=== PATIENT | male | born 1980 | race Caucasian/White ===

== ENCOUNTER 2017-12-07 09:08 | Emergency (ER) | payer SELFPAY ==
[2017-12-07 10:18] LABS: Basophils % (Auto) 0.4 % (0.0-1.8); Eosinophils # (Auto) 0.1 K/mm3 (0.0-0.4); Eosinophils % (Auto) 1.2 % (0.0-4.3); Hematocrit 37.9 % (35.5-45.6); Lymphocytes # (Auto) 1.6 K/mm3 (1.2-5.4); Lymphocytes % (Auto) 22.6 % (13.4-35.0); Mean Corpuscular HGB Conc 32 % (32-34); Mean Corpuscular Hemoglobin 31 pg (28-32); Mean Corpuscular Volume 97 fl (84-94); Monocytes # (Auto) 0.4 K/mm3 (0.0-0.8); Monocytes % (Auto) 6.1 % (0.0-7.3); Platelet Count 155 K/mm3 (140-440); Red Blood Count 3.92 M/mm3 (3.65-5.03)
[2017-12-07 10:20] LABS: Red Cell Distribution Width 22.7 % (13.2-15.2)
[2017-12-07 10:28] LABS: INR 1.29 (0.87-1.13); Partial Thromboplastin Time 27.9 Sec. (24.2-36.6)
[2017-12-07 10:30] LABS: Calcium 11.3 mg/dL (8.4-10.2)
[2017-12-07 11:04] LABS: Chol/HDL Ratio 2.88 %
--- NOTE | 2017-12-07 11:39 | XRay Report ---
ROUTINE CHEST, TWO VIEWS: HISTORY: chest pain. No comparison. A right IJ dual-lumen catheter terminates in the superior right atrium. There is minor scarring in the lingula, otherwise, the lungs are well-aerated. No evidence for pneumonia, pleural effusion or pneumothorax. Normal heart and mediastinal structures. The bony structures appear demineralized. No obvious fracture or bone lesion. There appears to be a stimulator device with 2 leads overlying the expected position of the cardiac apex. Please correlate with the patient's history. IMPRESSION: No acute cardiopulmonary process. Minor scarring in the lingula. Osteopenia.
[2017-12-07] MEDS ORDERED: ULTRAM PO ONE (20:03)
--- NOTE | 2017-12-07 21:16 | Emergency Department Report ---
ED General Adult HPI - General Chief complaint: Chest Pain Stated complaint: DIALYSIS Time Seen by Provider: 12/07/17 17:23 Source: patient Mode of arrival: Ambulatory Limitations: Language Barrier - History of Present Illness Initial comments: Patient was not able to get dialysis yesterday. He developed chest pain and posterior neck pain. This was associated with generalized muscle aches and joint pain. These are symptoms he has when he misses dialysis. So, he came to the ER to get his dialysis. He last had dialysis on Tuesday. - Related Data Allergies Allergy/AdvReac Type Severity Reaction Status Date / Time No Known Allergies Allergy Verified 12/07/17 09:32 ED Review of Systems ROS: Stated complaint: DIALYSIS Other details as noted in HPI Comment: All other systems reviewed and negative Constitutional: malaise Cardiovascular: chest pain Musculoskeletal: arthralgia, myalgia, other (neck pain) ED Past Medical Hx - Past Medical History Previous Medical History?: Yes Hx Renal Disease: Yes (ESRD Sat, Tu, Th) - Surgical History Past Surgical History?: Yes Additional Surgical History: fistula to right FA. VAS cath to right chest - Social History Smoking Status: Unknown if ever smoked ED Physical Exam - General Limitations: Language Barrier General appearance: alert, in no apparent distress, cachectic - Head Head exam: Present: atraumatic, normocephalic - Eye Eye exam: Present: normal appearance - ENT ENT exam: Present: mucous membranes moist - Neck Neck exam: Present: normal inspection - Respiratory Respiratory exam: Present: normal lung sounds bilaterally. Absent: respiratory distress - Cardiovascular Cardiovascular Exam: Present: regular rate, normal rhythm, other (tunneled subclavian cather in rt chest). Absent: systolic murmur, diastolic murmur, rubs , gallop - GI/Abdominal GI/Abdominal exam: Present: soft, normal bowel sounds. Absent: distended, tenderness, guarding, rebound - Rectal Rectal exam: Present: deferred - Extremities Exam Extremities exam: Present: normal inspection - Back Exam Back exam: Present: normal inspection - Neurological Exam Neurological exam: Present: alert, oriented X3 - Psychiatric Psychiatric exam: Present: normal affect, normal mood - Skin Skin exam: Present: warm, dry, intact, normal color. Absent: rash ED Course Vital Signs 12/07/17 12/07/17 12/07/17 09:32 17:19 17:30 Temperature 98.4 F Pulse Rate 82 77 58 L Respiratory 16 10 L 13 Rate Blood Pressure 119/92 133/98 133/98 O2 Sat by Pulse 97 99 99 Oximetry 12/07/17 12/07/17 12/07/17 17:46 18:00 18:15 Temperature Pulse Rate 67 54 L 67 Respiratory 13 12 14 Rate Blood Pressure 140/96 140/96 138/94 O2 Sat by Pulse 100 99 99 Oximetry 12/07/17 12/07/17 12/07/17 18:30 18:45 19:00 Temperature Pulse Rate 77 64 60 Respiratory 19 13 13 Rate Blood Pressure 144/101 138/89 139/89 O2 Sat by Pulse 95 100 99 Oximetry 12/07/17 19:16 Temperature Pulse Rate Respiratory 18 Rate Blood Pressure O2 Sat by Pulse 98 Oximetry ED Medical Decision Making - Lab Data Result diagrams: 12/07/17 09:50 12/07/17 09:50 - EKG Data -: EKG Interpreted by Ri EKG shows normal: sinus rhythm, axis, intervals, QRS complexes, ST-T waves Rate: normal - EKG Data Interpretation: no acute changes - Radiology Data Radiology results: report reviewed, image reviewed - Medical Decision Making 37-year-old male with past medical history of ESRD on Tuesday//Tuesday , hypertension that presents to the ER after missing dialysis. Vital signs are stable. Patient is well-appearing. EKG is nonischemic. Chest x-ray shows no acute process. Lab work shows mild hyperkalemia with potassium of 5.1. Abnormalities and lab work are consistent with somebody who needs dialysis urgently, but not emergently. I discussed the case with his platform man, who recommended he be discharged with dialysis tomorrow. Low suspicion for ACS. Patient eloped prior to receiving discharge instructions. - Differential Diagnosis ACS, dehydration, O abnormalities, missed dialysis, hypertensive emergency Critical care attestation.: If time is entered above; I have spent that time in minutes in the direct care of this critically ill patient, excluding procedure time. ED Disposition Clinical Impression: Chest pain, Missed dialysis Disposition: ELOPED Is pt being admited?: No Does the pt Need Aspirin: No Condition: Stable Instructions: Chest Pain (ED) Referrals: PRIMARY CARE, [Primary Care Provider] - 3-5 Days
[2017-12-07 21:35] VITALS: BP 107/62
== END 2017-12-07 21:35 | disposition left against medical advice (07) ==
LOC: ED 09:08
DX: I12.0 Hypertensive chronic kidney disease with stage 5 chronic kidney disease or end stage renal disease (principal); N18.6 End stage renal disease; Z99.2 Dependence on renal dialysis; R07.89 Other chest pain
CPT/HCPCS: 36415; 71046; 80048; 80061; 84484; 85025; 85610; 85730; 93005; 93010; 99284

== ENCOUNTER 2018-01-17 10:17 | Inpatient (IN) | payer SELFPAY ==
[2018-01-17] MEDS ORDERED: ASPIRIN PO ONE (10:36)
[2018-01-17 11:10] LABS: Basophils % (Auto) 0.3 % (0.0-1.8); Eosinophils % (Auto) 0.6 % (0.0-4.3); Hematocrit 42.6 % (35.5-45.6); Hemoglobin 13.8 gm/dl (11.8-15.2); Lymphocytes # (Auto) 0.6 K/mm3 (1.2-5.4); Lymphocytes % (Auto) 8.4 % (13.4-35.0); Mean Corpuscular HGB Conc 32 % (32-34); Mean Corpuscular Hemoglobin 30 pg (28-32); Mean Corpuscular Volume 94 fl (84-94); Monocytes # (Auto) 0.4 K/mm3 (0.0-0.8); Monocytes % (Auto) 5.2 % (0.0-7.3); Platelet Count 134 K/mm3 (140-440); Red Blood Count 4.55 M/mm3 (3.65-5.03); Red Cell Distribution Width 19.4 % (13.2-15.2)
[2018-01-17 11:24] LABS: Calcium 10.7 mg/dL (8.4-10.2)
[2018-01-17] MEDS ORDERED: ZOFRAN ODT PO ONE (11:50)
[2018-01-17] MEDS ORDERED: NITROSTAT SL PRN (11:50)
--- NOTE | 2018-01-17 12:07 | Emergency Department Report ---
ED Chest Pain HPI - General Chief Complaint: Chest Pain Stated Complaint: VOMITING/CHEST PAIN/WEAKNESS Time Seen by Provider: 01/17/18 11:29 Source: patient Mode of arrival: Wheelchair Limitations: No Limitations - History of Present Illness Initial Comments: Patient is a 37-year-old male with a past smoking history of a pacemaker and an end-stage renal disease who has not had any recent stress test who is complaining of chest pain. Patient states the chest pain is left-sided associated with diaphoresis nausea vomiting. Patient was here last month for chest pain as well but admits dialysis at that time and attributed his chest discomfort to missing dialysis. The patient eloped after being seen. Patient feels weak and fatigued during this episode. - Related Data Allergies Allergy/AdvReac Type Severity Reaction Status Date / Time No Known Allergies Allergy Verified 01/17/18 10:33 Heart Score - HEART Score History: Moderately suspicious EKG: Non-specific Age: < 45 Risk factors: 1-2 risk factors Troponin: 1-3x normal limit HEART Score: 4 ED Review of Systems ROS: Stated complaint: VOMITING/CHEST PAIN/WEAKNESS Other details as noted in HPI Comment: All other systems reviewed and negative ED Past Medical Hx - Past Medical History Hx Renal Disease: Yes (ESRD Sat, Tu, Th) - Surgical History Additional Surgical History: fistula to right FA. VAS cath to right chest - Social History Smoking Status: Never Smoker Substance Use Type: None ED Physical Exam - General Limitations: No Limitations General appearance: alert, lethargic - Head Head exam: Present: atraumatic, normocephalic - Eye Eye exam: Present: normal appearance - ENT ENT exam: Present: mucous membranes moist - Neck Neck exam: Present: normal inspection - Respiratory Respiratory exam: Present: normal lung sounds bilaterally. Absent: respiratory distress, wheezes, rales, rhonchi - Cardiovascular Cardiovascular Exam: Present: regular rate, normal rhythm. Absent: systolic murmur, diastolic murmur, rubs, gallop - GI/Abdominal GI/Abdominal exam: Present: soft, normal bowel sounds. Absent: distended, tenderness, guarding, rebound - Rectal Rectal exam: Present: deferred - Extremities Exam Extremities exam: Present: normal inspection - Back Exam Back exam: Present: normal inspection - Neurological Exam Neurological exam: Present: alert, oriented X3 - Psychiatric Psychiatric exam: Present: normal affect, normal mood - Skin Skin exam: Present: warm, dry, intact, pallor. Absent: rash ED Course Vital Signs 01/17/18 10:34 Temperature 98.1 F Pulse Rate 68 Respiratory 16 Rate Blood Pressure 124/87 O2 Sat by Pulse 99 Oximetry FRANCOISE score - Francoise Score Age > 65: (0) No Aspirin use within the Past 7 Days: (0) No 3 or more CAD Risk Factors: (0) No 2 or more Angina events in past 24 hrs: (1) Yes Known CAD with more than 50% Stenosis: (0) No Elevated Cardiac Markers: (1) Yes ST Deviation Greater than 0.5mm: (0) No FRANCOISE Score: 2 ED Medical Decision Making - Lab Data Result diagrams: 01/17/18 10:48 01/17/18 10:48 Lab Results 01/17/18 01/17/18 Range/Units 10:48 10:48 WBC 7.7 (4.5-11.0) K/mm3 RBC 4.55 (3.65-5.03) M/mm3 Hgb 13.8 (11.8-15.2) gm/dl Hct 42.6 (35.5-45.6) % MCV 94 (84-94) fl MCH 30 (28-32) pg MCHC 32 (32-34) % RDW 19.4 H (13.2-15.2) % Plt Count 134 L (140-440) K/mm3 Lymph % (Auto) 8.4 L (13.4-35.0) % [place] % (Auto) 5.2 (0.0-7.3) % Eos % (Auto) 0.6 (0.0-4.3) % Baso % (Auto) 0.3 (0.0-1.8) % Lymph # 0.6 L (1.2-5.4) K/mm3 [place] # 0.4 (0.0-0.8) K/mm3 Eos # 0.0 (0.0-0.4) K/mm3 Baso # 0.0 (0.0-0.1) K/mm3 Seg Neutrophils % 85.5 H (40.0-70.0) % Seg Neutrophils # 6.5 (1.8-7.7) K/mm3 Sodium 141 (137-145) mmol/L Potassium 4.4 (3.6-5.0) mmol/L Chloride 94.0 L (98-107) mmol/L Carbon Dioxide 23 (22-30) mmol/L Anion Gap 28 mmol/L BUN 51 H (9-20) mg/dL Creatinine 9.8 H (0.8-1.5) mg/dL Estimated GFR 6 ml/min BUN/Creatinine Ratio 5 % Glucose 89 (75-100) mg/dL Calcium 10.7 H (8.4-10.2) mg/dL Troponin T 0.052 H (0.00-0.029) ng/mL - EKG Data -: EKG Interpreted by Me - EKG Data 01/17/18 12:05 EKG shows a paced rhythm that has has an underlying probable atrial fibrillation. Patient's axis is rightward intervals the patient has a prolonged QT. There is no obvious ST elevation present. There are Q waves in the lateral leads. There is no evidence of any ST elevation present. Patient' s EKG does show change since 12/07/2017 patient's last visit. - Radiology Data Radiology results: pending - Medical Decision Making Patient is a 37-year-old male with end-stage renal disease complaining of chest pain. I cannot find a cardiac workup for this patient of the system here. Patient is ill-appearing feels very weak and vomited numerous times with diaphoresis. Patient's troponin is elevated however is not elevated more than what the patient's baseline is. Patient will be admitted to the hospitalist service at this time. Critical Care Time: Yes (30) Critical care attestation.: If time is entered above; I have spent that time in minutes in the direct care of this critically ill patient, excluding procedure time. ED Disposition Clinical Impression: Chest pain Qualifiers: Chest pain type: unspecified Qualified Code(s): R07.9 - Chest pain, unspecified Disposition: DC-09 OP ADMIT IP TO THIS HOSP Is pt being admited?: Yes Does the pt Need Aspirin: No Condition: Serious Instructions: Chest Pain (ED) Referrals: PRIMARY CARE, [Primary Care Provider] - 3-5 Days Time of Disposition: 12:07
[2018-01-17 12:09] LABS: Chol/HDL Ratio 2.92 %
--- NOTE | 2018-01-17 12:10 | History and Physical Report ---
History of Present Illness Chief complaint: Missed dialysis History of present illness: 37 YO Male with ESRD on HD(T,R,Sa) Presents to ED for evaluation. Pt states that he has experienced nausea, 2 episodes of vomiting, and feeling sick over the past 3 days with persistent symptoms over the same time frame. Pt acknowledges chest discomfort. Pt denies fever, chills, CP, Palpitations, Syncope, BRBPR, unilateral leg swelling, calf pain, productive cough, prolonged travel/immobility, shortness of breath, or recent ill contacts. Pt seen and evaluated in ED and found to have EDRD and Fluid overload secondary to noncompliance. Pt admitted to medical floor with remote telemetry. Nephrology consulted in ED for urgent dialysis. Past History Past Medical History: ESRD Past Surgical History: Other (AVF, Vas Cath) Social history: single. denies: smoking, alcohol abuse, prescription drug abuse Family history: hypertension Medications and Allergies Allergies Allergy/AdvReac Type Severity Reaction Status Date / Time No Known Allergies Allergy Verified 01/17/18 10:33 Active Meds: Active Medications Nitroglycerin (Nitrostat) 0.4 mg SL .Q5MIN PRN PRN Reason: Chest Pain Review of Systems Constitutional: weakness, no weight loss, no weight gain, no fever, no chills Ears, nose, mouth and throat: no ear pain, no ear discharge, no tinnitis, no decreased hearing, no nose pain, no nasal congestion Cardiovascular: no chest pain, no orthopnea, no palpitations, no rapid/ irregular heart beat, no syncope, no shortness of breath Respiratory: no cough, no cough with sputum, no excessive sputum, no hemoptysis Gastrointestinal: nausea, vomiting, no change in bowel habits, no hematemesis, no coffee ground emesis, no BRBPR, no melena, no hematochezia, no loss of appetite Genitourinary Male: no hematuria, no flank pain, no discharge, no urinary frequency, no urinary hesitancy Rectal: no pain, no incontinence, no bleeding Musculoskeletal: no neck stiffness, no neck pain, no shooting arm pain, no arm numbness/tingling, no low back pain, no shooting leg pain Integumentary: no rash, no pruritis, no redness, no sores, no wounds Neurological: no head injury, no transient paralysis, no paralysis, no weakness Psychiatric: no anxiety, no memory loss, no change in sleep habits, no sleep disturbances, no insomnia, no hypersomnia, no change in appetite Endocrine: no cold intolerance, no heat intolerance, no polyphagia, no excessive thirst, no polydipsia, no polyuria Hematologic/Lymphatic: no easy bruising, no easy bleeding, no lymphedema Allergic/Immunologic: no urticaria, no allergic rhinitis, no wheezing, no persistent infections, no anaphylaxis Exam - Constitutional Vitals: Temp Pulse Resp BP Pulse Ox 98.1 F 68 16 124/87 99 01/17/18 10:34 01/17/18 10:34 01/17/18 10:34 01/17/18 10:34 01/17/18 10:34 General appearance: Present: mild distress - EENT Eyes: Present: PERRL ENT: hearing intact, clear oral mucosa - Neck Neck: Present: supple, normal ROM - Respiratory Respiratory effort: normal Respiratory: bilateral: CTA - Cardiovascular Heart Sounds: Present: S1 & S2. Absent: rub, click - Extremities Extremities: pulses symmetrical, No edema Peripheral Pulses: within normal limits - Abdominal General gastrointestinal: Present: soft, non-tender, non-distended, normal bowel sounds Male genitourinary: Present: normal - Integumentary Integumentary: Present: clear, warm, dry - Musculoskeletal Musculoskeletal: generalized weakness - Psychiatric Psychiatric: appropriate mood/affect, intact judgment & insight - Neurologic Neurologic: CNII-XII intact, moves all extremities Results - Labs CBC & Chem 7: 01/17/18 10:48 01/17/18 10:48 Labs: Abnormal lab results 01/17/18 01/17/18 Range/Units 10:48 10:48 RDW 19.4 H (13.2-15.2) % Plt Count 134 L (140-440) K/mm3 Lymph % (Auto) 8.4 L (13.4-35.0) % Lymph # 0.6 L (1.2-5.4) K/mm3 Seg Neutrophils % 85.5 H (40.0-70.0) % Chloride 94.0 L (98-107) mmol/L BUN 51 H (9-20) mg/dL Creatinine 9.8 H (0.8-1.5) mg/dL Calcium 10.7 H (8.4-10.2) mg/dL Troponin T 0.052 H (0.00-0.029) ng/mL Triglycerides 171 H (2-149) mg/dL Assessment and Plan - Patient Problems (1) ESRD (end stage renal disease) Current Visit: Yes Status: Acute Plan to address problem: Strict I/O, monitor uop q shift, nephrology consulted in ED for dialysis, avoid nephrotoxic agents, dialysis as per renal team. (2) Severe malnutrition Current Visit: Yes Status: Acute Plan to address problem: Encourage increased protein intake, (3) Noncompliance Current Visit: Yes Status: Acute Plan to address problem: Pt counseled, (4) Chest pain, atypical Current Visit: Yes Status: Acute Plan to address problem: serial cardiac enzymes, remote telemetry, CTA chest, (5) DVT prophylaxis Current Visit: Yes Status: Acute Plan to address problem: SCD to BLE while in bed.
[2018-01-17] MEDS ORDERED: TYLENOL PO PRN ×2 (12:11→12:12)
[2018-01-17] MEDS ORDERED: ZOFRAN IV PRN ×2 (12:11→12:12)
[2018-01-17] MEDS ORDERED: SODIUM CHLORIDE FLUSH SYRINGE 10 ML IV PRN ×3 (12:11→12:58)
[2018-01-17] MEDS ORDERED: PROVENTIL IH PRN (12:12)
--- NOTE | 2018-01-17 12:36 | XRay Report ---
ROUTINE CHEST, TWO VIEWS: HISTORY: chest pain. The trachea, heart, mediastinal contour, lung duran and bony thorax are unremarkable. The right IJ venous catheter has been removed since 12/07/17. The epicardial device is unchanged. IMPRESSION: No acute cardiopulmonary process identified.
[2018-01-17] MEDS ORDERED: HEPARIN 10,000 UNITS/10 ML IV PRN (13:23)
[2018-01-17] MEDS ORDERED: NACL 0.9% 100 ML IV PRN (13:23)
[2018-01-17] MEDS ORDERED: HEPARIN IV PRN (13:23)
[2018-01-17] MEDS: PROTONIX PO SCH (15:35)
[2018-01-17] MEDS ORDERED: NACL 0.9% 100 ML ONE (17:14)
--- NOTE | 2018-01-17 18:28 | Cat Scan Report ---
FINAL REPORT EXAM: CT ANGIO CHEST HISTORY: chest pain TECHNIQUE: Following IV administration of 100 cc of Omnipaque 350 axial helical imaging was performed through the chest with maximum intensity projection images obtained. Comparison: None FINDINGS: There are areas of pulmonary consolidation in the upper and lower lobes bilaterally. This is most marked in the lower lobes. There is no evidence of pneumothorax or pleural fluid collection. The trachea and bronchi are patent. The heart is enlarged. There is a percutaneous AICD. The thoracic aorta is normal caliber. There is no evidence of intrathoracic adenopathy. No filling defects are demonstrated within the pulmonary arteries to suggest the presence of pulmonary artery emboli. The bony structures are notable for bony changes consistent with chronic renal disease. There are innumerable bilateral renal cysts. There is increased density of the dura within the thoracic canal suggestive of dural calcification. There appears to be bilateral pleural calcification. IMPRESSION: 1. No evidence of pulmonary artery emboli. 2. Pulmonary consolidation in the upper and lower lobes bilaterally. Infectious and noninfectious etiologies need to be considered. Comparison with previous imaging studies would be helpful. 3. Cardiomegaly with percutaneous AICD. 4. Bony changes consistent with chronic renal disease. 5. Innumerable bilateral renal cysts. 6. Appearance of calcification of the dura in the thoracic spine and bilateral pleural calcification. Comparison with previous imaging studies would be helpful.
[2018-01-17] MEDS ORDERED: SODIUM CHLORIDE FLUSH SYRINGE 10 ML IV SCH (22:00)
--- NOTE | 2018-01-18 09:43 | Progress Note ---
Assessment and Plan Assessment and plan: 37 YO Male with ESRD on HD(T,R,Sa) presented because he experienced nausea, 2 episodes of vomiting, and feeling sick x 3 days with persistent symptoms over the same time frame. per patient these symptoms always occur when he misses HD, admitted to missing HD which he usually does at [facility] -his last stress test was in Apr 17 Past History Past Medical History: ESRD, afib ESRD (end stage renal disease) continue HD Severe malnutrition Current Visit: Yes Status: Acute Plan to address problem: Encourage increased protein intake, Noncompliance Current Visit: Yes Status: Acute Plan to address problem: Pt counseled, Chest pain, atypical awaiting stress test Afib with hypercoaguable state, continue meds, on warfarin DVT prophylaxis SCD to BLE while in bed. History Interval history: denies cp, sob, vomiting, fever or chills Hospitalist Physical - Constitutional Vitals: Temp Pulse Resp BP Pulse Ox 98.7 F 55 L 18 104/66 98 01/18/18 06:05 01/18/18 06:05 01/18/18 06:05 01/18/18 06:05 01/18/18 06:05 General appearance: Present: no acute distress, mild distress - EENT Eyes: Present: PERRL - Neck Neck: Present: supple - Respiratory Respiratory effort: normal Respiratory: bilateral: CTA - Cardiovascular Heart Sounds: Present: S1 & S2 - Extremities Extremities: no ischemia Peripheral Pulses: within normal limits - Abdominal General gastrointestinal: soft, non-tender - Integumentary Integumentary: Present: clear, warm - Psychiatric Psychiatric: appropriate mood/affect, intact judgment & insight - Neurologic Neurologic: CNII-XII intact, moves all extremities - Allied Health Allied health notes reviewed: social work, case management Results - Labs CBC & Chem 7: 01/17/18 10:48 01/17/18 10:48 Labs: Laboratory Last Values WBC 7.7 K/mm3 (4.5-11.0) 01/17/18 10:48 RBC 4.55 M/mm3 (3.65-5.03) 01/17/18 10:48 Hgb 13.8 gm/dl (11.8-15.2) 01/17/18 10:48 Hct 42.6 % (35.5-45.6) 01/17/18 10:48 MCV 94 fl (84-94) 01/17/18 10:48 MCH 30 pg (28-32) 01/17/18 10:48 MCHC 32 % (32-34) 01/17/18 10:48 RDW 19.4 % (13.2-15.2) H 01/17/18 10:48 Plt Count 134 K/mm3 (140-440) L 01/17/18 10:48 Lymph % (Auto) 8.4 % (13.4-35.0) L 01/17/18 10:48 [place] % (Auto) 5.2 % (0.0-7.3) 01/17/18 10:48 Eos % (Auto) 0.6 % (0.0-4.3) 01/17/18 10:48 Baso % (Auto) 0.3 % (0.0-1.8) 01/17/18 10:48 Lymph # 0.6 K/mm3 (1.2-5.4) L 01/17/18 10:48 [place] # 0.4 K/mm3 (0.0-0.8) 01/17/18 10:48 Eos # 0.0 K/mm3 (0.0-0.4) 01/17/18 10:48 Baso # 0.0 K/mm3 (0.0-0.1) 01/17/18 10:48 Seg Neutrophils % 85.5 % (40.0-70.0) H 01/17/18 10:48 Seg Neutrophils # 6.5 K/mm3 (1.8-7.7) 01/17/18 10:48 Sodium 141 mmol/L (137-145) 01/17/18 10:48 Potassium 4.4 mmol/L (3.6-5.0) 01/17/18 10:48 Chloride 94.0 mmol/L (98-107) L 01/17/18 10:48 Carbon Dioxide 23 mmol/L (22-30) 01/17/18 10:48 Anion Gap 28 mmol/L 01/17/18 10:48 BUN 51 mg/dL (9-20) H 01/17/18 10:48 Creatinine 9.8 mg/dL (0.8-1.5) H 01/17/18 10:48 Estimated GFR 6 ml/min 01/17/18 10:48 BUN/Creatinine Ratio 5 % 01/17/18 10:48 Glucose 89 mg/dL (75-100) 01/17/18 10:48 Calcium 10.7 mg/dL (8.4-10.2) H 01/17/18 10:48 Troponin T 0.058 ng/mL (0.00-0.029) H 01/17/18 19:01 Triglycerides 171 mg/dL (2-149) H 01/17/18 10:48 Cholesterol 123 mg/dL (50-199) 01/17/18 10:48 LDL Cholesterol Direct 64 mg/dL (50-130) 01/17/18 10:48 HDL Cholesterol 42 mg/dL (40-59) 01/17/18 10:48 Cholesterol/HDL Ratio 2.92 % 01/17/18 10:48
--- NOTE | 2018-01-18 11:05 | Consultation ---
History of Present Illness Consult date: 01/18/18 Requesting physician: JUANITA LOBO Consult reason: chest pain History of present illness: The pt is a 37 YO male with a past medical history significant for ESRD , s/p failed kidney transplant, heart failure, AICD in situ (placed 9 months ago per pt report). He is previously unknown to our practice. He reports that he is regularly followed by [facility]. He presented with complaints of chest pain, nausea and vomiting for 1 day prior to arrival. He describes his pain as an intermittent left-sided stabbing pain. He denies any SOB, palpitations, n/v, diaphoresis, dizziness or syncope. He reports compliance with his medication regimen and dialysis schedule. He denies missing any dialysis. On evaluation, he denies any current chest pain. Past History Past Medical History: ESRD, heart failure Past Surgical History: Other (AVF, Vas Cath; AICD; s/p failed kidney transplant) Social history: single. denies: smoking, alcohol abuse, prescription drug abuse Family history: hypertension Medications and Allergies Allergies Allergy/AdvReac Type Severity Reaction Status Date / Time No Known Allergies Allergy Verified 01/17/18 10:33 Active Meds: Active Medications Acetaminophen (Tylenol) 650 mg PO Q4H PRN PRN Reason: Pain MILD(1-3)/Fever >100.5/MAKI Albuterol (Proventil) 2.5 mg IH Q4HRT PRN PRN Reason: Shortness Of Breath Heparin Sodium (Porcine) (Heparin 10,000 Units/10 Ml) 2,000 unit IV TYLOR PRN PRN Reason: hemodialysis Last Admin: 01/17/18 19:29 Dose: 2,000 unit Heparin Sodium (Porcine) (Heparin) 5,000 unit IV TYLOR PRN PRN Reason: hemodialysis Sodium Chloride (Nacl 0.9%) 100 mls @ 999 mls/hr IV TYLOR PRN PRN Reason: Hypotension Nitroglycerin (Nitrostat) 0.4 mg SL .Q5MIN PRN PRN Reason: Chest Pain Ondansetron HCl (Zofran) 4 mg IV Q8H PRN PRN Reason: Nausea And Vomiting Pantoprazole Sodium (Protonix) 20 mg PO QDAY [facility] Last Admin: 01/17/18 15:35 Dose: Not Given Sodium Chloride (Sodium Chloride Flush Syringe 10 Ml) 10 ml IV BID [facility]ARNIE Sodium Chloride (Sodium Chloride Flush Syringe 10 Ml) 10 ml IV PRN PRN PRN Reason: LINE FLUSH Review of Systems Constitutional: no weight loss, no weight gain, no fever, no chills, no sweats Ears, nose, mouth and throat: no ear pain, no nose pain, no sinus pressure, no sinus pain Cardiovascular: chest pain, no orthopnea, no palpitations, no rapid/irregular heart beat, no edema, no syncope, no lightheadedness, no shortness of breath, no dyspnea on exertion Respiratory: no cough, no shortness of breath, no dyspnea on exertion, no congestion, no wheezing, no pain on inspiration Gastrointestinal: nausea, vomiting, no abdominal pain, no diarrhea, no constipation, no change in bowel habits Genitourinary Male: no dysuria, no hematuria, no flank pain, no discharge, no urinary frequency, no urinary hesitancy Musculoskeletal: no neck stiffness, no neck pain Integumentary: no rash, no pruritis, no redness, no sores, no wounds Neurological: no head injury, no paralysis, no weakness, no parathesias, no numbness, no tingling, no seizures, no syncope Psychiatric: no anxiety Endocrine: no cold intolerance, no heat intolerance Hematologic/Lymphatic: no easy bruising, no easy bleeding Allergic/Immunologic: no urticaria, no wheezing Physical Examination Vital Signs Temp Pulse Resp BP Pulse Ox 98.1 F 68 16 124/87 99 01/17/18 10:34 01/17/18 10:34 01/17/18 10:34 01/17/18 10:34 01/17/18 10:34 General appearance: no acute distress HEENT: Positive: PERRL, Normocephaly, Mucus Membranes Moist Neck: Positive: neck supple, trachea midline Cardiac: Positive: Reg Rate and Rhythm, S1/S2 Lungs: Positive: clear to auscultation Neuro: Positive: Grossly Intact Abdomen: Positive: Soft. Negative: Tender Skin: Positive: Clear. Negative: Rash, Wound Musculoskeletal: No Fluid Collection, No Pain, Normal Range of Motion Extremities: Absent: edema Results 01/17/18 10:48 01/17/18 10:48 Lipids 01/17/18 Range/Units 10:48 Triglycerides 171 H (2-149) mg/dL Cholesterol 123 (50-199) mg/dL HDL Cholesterol 42 (40-59) mg/dL Cholesterol/HDL Ratio 2.92 % CBC 01/17/18 Range/Units 10:48 WBC 7.7 (4.5-11.0) K/mm3 RBC 4.55 (3.65-5.03) M/mm3 Hgb 13.8 (11.8-15.2) gm/dl Hct 42.6 (35.5-45.6) % Plt Count 134 L (140-440) K/mm3 Lymph # 0.6 L (1.2-5.4) K/mm3 [place] # 0.4 (0.0-0.8) K/mm3 Eos # 0.0 (0.0-0.4) K/mm3 Baso # 0.0 (0.0-0.1) K/mm3 Comprehensive Metabolic Panel 01/17/18 Range/Units 10:48 Sodium 141 (137-145) mmol/L Potassium 4.4 (3.6-5.0) mmol/L Chloride 94.0 L (98-107) mmol/L Carbon Dioxide 23 (22-30) mmol/L BUN 51 H (9-20) mg/dL Creatinine 9.8 H (0.8-1.5) mg/dL Glucose 89 (75-100) mg/dL Calcium 10.7 H (8.4-10.2) mg/dL - Imaging and Cardiology EKG: report reviewed, image reviewed EKG interpretations - Telemetry EKG Rhythm: Paced Pacemaker: ventricular pacing w/capt Assessment and Plan Chest pain current resolved. Obtain echo. Consider addition of BB and/or ACEI/ARB if BPs permit. Request medical records from [facility]. Will tentatively plan for lexiscan MPI stress test in AM. If able to obtain recent ischemic evaluation from [facility] today , we may not need to proceed with stress test. The patient has been seen in conjunction with Dr. Valdez who agrees with the assessment and plan of care. - Patient Problems (1) Chest pain Current Visit: Yes Status: Acute Qualifiers: Chest pain type: unspecified Qualified Code(s): R07.9 - Chest pain, unspecified (2) Elevated troponin Current Visit: Yes Status: Acute (3) History of cardiomyopathy Current Visit: Yes Status: Suspected (4) Automatic implantable cardioverter-defibrillator in situ Current Visit: Yes Status: Chronic (5) ESRD (end stage renal disease) Current Visit: Yes Status: Chronic
[2018-01-18] MEDS: PROTONIX PO SCH (11:27)
[2018-01-18] MEDS: SODIUM CHLORIDE FLUSH SYRINGE 10 ML IV SCH ×2 (11:28→21:30)
[2018-01-18] MEDS ORDERED: NACL 0.9% 100 ML IV PRN (16:27)
--- NOTE | 2018-01-18 16:33 | Consultation ---
History of Present Illness - Reason for Consult Consult date: 01/18/18 end stage renal disease Requesting physician: FIDELINA GALVEZ - History of Present Illness 37-year-old with a history of hypertension, End stage renal disease who initially had kidney transplant in 2001. Unfortunately transplant failed in 2004. Patient received peritoneal dialysis in the past and has been on hemodialysis for the last several years. He is currently undocumented in [facility] and has been receiving dialysis at [facility] on Mondays and . Patient went for his routine dialysis on Tuesday at [facility] and had treatment without any complications. Presents on account of chest pain which is a dull ache of mild to moderate severity associated with nausea and vomiting but no dizziness or diaphoresis. On account of the Pain, Patient came into the hospital for further evaluation. No known history of coronary disease Past History Past Medical History: ESRD, heart failure Past Surgical History: Other (AVF, Vas Cath; AICD; s/p failed kidney transplant , peritoneal dialysis catheter placement, peritoneal dialysis catheter removal) Social history: single, lives with family (with sister and [id number]). denies: smoking, alcohol abuse, prescription drug abuse, IV drug use Family history: hypertension Medications and Allergies Allergies Allergy/AdvReac Type Severity Reaction Status Date / Time No Known Allergies Allergy Verified 01/17/18 10:33 Active Meds: Active Medications Acetaminophen (Tylenol) 650 mg PO Q4H PRN PRN Reason: Pain MILD(1-3)/Fever >100.5/MAKI Albuterol (Proventil) 2.5 mg IH Q4HRT PRN PRN Reason: Shortness Of Breath Aspirin (Baby Aspirin) 81 mg PO QDAY [facility] Heparin Sodium (Porcine) (Heparin 10,000 Units/10 Ml) 2,000 unit IV TYLOR PRN PRN Reason: hemodialysis Last Admin: 01/17/18 19:29 Dose: 2,000 unit Heparin Sodium (Porcine) (Heparin) 5,000 unit IV TYLOR PRN PRN Reason: hemodialysis Sodium Chloride (Nacl 0.9%) 100 mls @ 999 mls/hr IV TYLOR PRN PRN Reason: Hypotension Sodium Chloride (Nacl 0.9%) 100 mls @ 999 mls/hr IV TYLOR PRN PRN Reason: Hypotension Nitroglycerin (Nitrostat) 0.4 mg SL .Q5MIN PRN PRN Reason: Chest Pain Ondansetron HCl (Zofran) 4 mg IV Q8H PRN PRN Reason: Nausea And Vomiting Pantoprazole Sodium (Protonix) 20 mg PO QDAY [facility] Last Admin: 01/18/18 11:27 Dose: 20 mg Sodium Chloride (Sodium Chloride Flush Syringe 10 Ml) 10 ml IV BID [facility] Last Admin: 01/18/18 11:28 Dose: 10 ml Sodium Chloride (Sodium Chloride Flush Syringe 10 Ml) 10 ml IV PRN PRN PRN Reason: LINE FLUSH Review of Systems All systems: negative (Constitutional: no fever or chills. No anorexia or weight loss. HEENT: No sore throat or sinus drainage no hearing or vision impairment . Cardiovascular: See history of present illness. Respiratory: No cough, sputum, shortness of breath, hemoptysis or wheezing. Gastrointestinal: No nausea, vomiting, diarrhea, abdominal pain, hematemesis or melena. Genitourinary: No frequency urgency dysuria or hematuria. hematologic: No abnormal bleeding or bruising. Integumentary: no pruritus or rash. Neurological : Admits to headache. No focal weakness or numbness, no syncope or seizures. Musculoskeletal: Admits to joint pain and stiffness in knees and back Psychiatry: no anxiety or depression) Exam - Vital Signs Vital signs: Vital Signs Temp Pulse Resp BP Pulse Ox 98.1 F 68 16 124/87 99 01/17/18 10:34 01/17/18 10:34 01/17/18 10:34 01/17/18 10:34 01/17/18 10:34 - Physical Exam Narrative exam: Young male lying in bed in no acute distress HEENT: NCAT, pink oral mucous membrane Neck: Supple, no venous distention CVS: S1S2 RRR with no murmur, rub or gallop Chest: Clear to auscultation except for a few rales in the right lower zone Abdomen: Scar right side of the abdomen in the suprapubic area, Protuberant, soft, nontender, no organomegaly, bowel sounds are present Extremities: No edema, right upper arm extremity AV fistula, old trombonist forearm AV fistula Neuro: Awake, alert no focal deficits Results - Lab Results 01/17/18 10:48 01/17/18 10:48 Most recent lab results Calcium 10.7 mg/dL (8.4-10.2) H 01/17/18 10:48 Assessment and Plan - Patient Problems (1) Chest pain, atypical Current Visit: Yes Status: Acute Plan to address problem: Cardiology evaluation. Stress test planned (2) Other hypotension Current Visit: Yes Status: Acute Plan to address problem: Blood pressure dropped post dialysis. Avoid hypotensive medications. Fu BP. May need to give Midodrine on dialysis if this is a frequent occurrence (3) ESRD (end stage renal disease) Current Visit: Yes Status: Chronic Plan to address problem: Orders were given for Urgent dialysis yesterday. Patient is stable today and also will hold dialysis till tomorrow.
[2018-01-18] MEDS ORDERED: COUMADIN PO SCH (21:49)
[2018-01-18] MEDS: CORDARONE PO SCH (22:50)
[2018-01-19 01:19] LABS: INR 1.22 (0.87-1.13)
[2018-01-19] MEDS ORDERED: COUMADIN PO SCH (01:30)
[2018-01-19] MEDS: PROAMATINE PO SCH ×3 (08:00→16:00)
[2018-01-19] MEDS ORDERED: LEXISCAN IV ONE (09:05)
--- NOTE | 2018-01-19 11:02 | Progress Note ---
Assessment and Plan - Patient Problems (1) Chest pain, atypical Current Visit: Yes Status: Acute (2) Other hypotension Current Visit: Yes Status: Acute (3) ESRD (end stage renal disease) Current Visit: Yes Status: Chronic Objective - Vital Signs Vital signs: Vital Signs - 12hr 01/18/18 01/19/18 23:17 05:20 Temperature 99.1 F 98.5 F Pulse Rate 64 58 L Respiratory 16 16 Rate Blood Pressure 104/72 107/71 O2 Sat by Pulse 95 97 Oximetry - Lab 01/17/18 10:48 01/17/18 10:48 Most recent lab results Calcium 10.7 mg/dL (8.4-10.2) H 01/17/18 10:48
[2018-01-19] MEDS: CORDARONE PO SCH ×2 (12:43→21:51)
[2018-01-19] MEDS: PROTONIX PO SCH (12:43)
[2018-01-19] MEDS: BABY ASPIRIN PO SCH (12:43)
[2018-01-19] MEDS: SODIUM CHLORIDE FLUSH SYRINGE 10 ML IV SCH ×2 (12:44→21:52)
--- NOTE | 2018-01-19 13:24 | Progress Note ---
Assessment and Plan S/p lexiscan MPI stress test this AM which was positive for inferolateral ischemia, EF 61%. Coronary angiography recommended for definitive diagnosis. Indications, potential risks and benefits of LHC reviewed with pt and he is agreeable to proceed in AM. NPO after MN. The patient has been seen in conjunction with Dr. Valdez who agrees with the assessment and plan of care. - Patient Problems (1) Chest pain Current Visit: Yes Status: Acute Qualifiers: Chest pain type: unspecified Qualified Code(s): R07.9 - Chest pain, unspecified (2) Elevated troponin Current Visit: Yes Status: Acute (3) Cardiac pacemaker in situ Current Visit: Yes Status: Acute (4) History of cardiomyopathy Current Visit: Yes Status: Suspected (5) ESRD (end stage renal disease) Current Visit: Yes Status: Chronic Subjective Date of service: 01/19/18 Principal diagnosis: cp Interval history: pt resting comfortably in bed, no current complaints. s/p stress test this AM. Objective Last Vital Signs Temp 98.5 F 01/19/18 12:02 Pulse 60 01/19/18 12:02 Resp 18 01/19/18 12:02 BP 100/70 01/19/18 12:02 Pulse Ox 98 01/19/18 12:02 - Physical Examination General: No Apparent Distress HEENT: Positive: PERRL, Normocephaly, Mucus Membranes Moist Neck: Positive: neck supple, trachea midline Cardiac: Positive: Reg Rate and Rhythm, S1/S2 Lungs: Positive: clear to auscultation Neuro: Positive: Grossly Intact Abdomen: Positive: Soft. Negative: Tender Skin: Positive: Clear. Negative: Rash, Wound Musculoskeletal: No Fluid Collection, No Pain, Normal Range of Motion Extremities: Absent: edema - Labs and Meds Coagulation 01/18/18 Range/Units 23:46 PT 16.1 H (12.2-14.9) Sec. INR 1.22 H (0.87-1.13) - Imaging and Cardiology EKG: report reviewed, image reviewed Pacemaker: ventricular pacing w/capt
[2018-01-19] MEDS ORDERED: NACL 0.9% 500 ML 500 ML IV SCH (14:00)
--- NOTE | 2018-01-19 15:09 | Treadmill Report ---
MYOCARDIAL PERFUSION IMAGING STUDY Resting technetium scan revealed homogeneous radioisotope activity throughout the myocardium except for slightly diminished uptake in the inferolateral wall. On post-Lexiscan images, there was moderate diminished radioisotope count in the inferolateral wall. There was transient ischemic dilatation of 1.22. On gated scan, ejection fraction was noted to be 61% with mild hypokinesis of the lateral wall. IMPRESSION: This test is abnormal, suggesting ischemia in the inferolateral wall of moderate degree along with transient ischemic dilatation. We recommend further testing if clinically warranted. JOB# [id number] PARK/SANTOSH
[2018-01-19] MEDS ORDERED: HEPARIN/ 0.45% NACL-25,000 UNIT/500 ML 25,000 UNIT/500 ML BAG IV SCH (17:00)
--- NOTE | 2018-01-19 17:25 | Progress Note ---
Assessment and Plan Assessment and plan: 37 YO Male with ESRD on HD(T,R,Sa) presented because he experienced nausea, 2 episodes of vomiting, and feeling sick x 3 days with persistent symptoms over the same time frame. per patient these symptoms always occur when he misses HD, admitted to missing HD which [facility] -his last stress test was in Apr 17 Past History Past Medical History: ESRD, afib ESRD (end stage renal disease) continue HD Severe malnutrition Encourage increased protein intake, Noncompliance: Pt counseled, Chest pain, atypical for stress test tomorrow, [facility] Afib with hypercoaguable state, continue meds, on warfarin History Interval history: denies cp, sob, vomiting, fever or chills Hospitalist Physical - Physical exam Narrative exam: General.: Appears well, no distress, nontoxic HEENT: Moist mucous membranes, extraocular muscles intact, no lymphadenopathy Neck: supple Cardiac: S1-S2 heard Lungs: clear to auscultation bilaterally Abdomen: soft , nontender, nondistended, bowel sounds positive Extremities: no edema clubbing or cyanosis Skin: no rash or lesions Neurologic: no gross focal deficits Psych: appropriate behavior, appropriate mood, corporative, judgment intact - Constitutional Vitals: Temp Pulse Resp BP Pulse Ox 98.1 F 52 L 16 88/59 98 01/19/18 13:45 01/19/18 17:00 01/19/18 13:45 01/19/18 17:00 01/19/18 12:02 General appearance: Present: no acute distress, mild distress Results - Labs CBC & Chem 7: 01/20/18 06:00 01/20/18 06:00 Labs: Laboratory Last Values WBC 7.7 K/mm3 (4.5-11.0) 01/17/18 10:48 RBC 4.55 M/mm3 (3.65-5.03) 01/17/18 10:48 Hgb 13.8 gm/dl (11.8-15.2) 01/17/18 10:48 Hct 42.6 % (35.5-45.6) 01/17/18 10:48 MCV 94 fl (84-94) 01/17/18 10:48 MCH 30 pg (28-32) 01/17/18 10:48 MCHC 32 % (32-34) 01/17/18 10:48 RDW 19.4 % (13.2-15.2) H 01/17/18 10:48 Plt Count 134 K/mm3 (140-440) L 01/17/18 10:48 Lymph % (Auto) 8.4 % (13.4-35.0) L 01/17/18 10:48 [place] % (Auto) 5.2 % (0.0-7.3) 01/17/18 10:48 Eos % (Auto) 0.6 % (0.0-4.3) 01/17/18 10:48 Baso % (Auto) 0.3 % (0.0-1.8) 01/17/18 10:48 Lymph # 0.6 K/mm3 (1.2-5.4) L 01/17/18 10:48 [place] # 0.4 K/mm3 (0.0-0.8) 01/17/18 10:48 Eos # 0.0 K/mm3 (0.0-0.4) 01/17/18 10:48 Baso # 0.0 K/mm3 (0.0-0.1) 01/17/18 10:48 Seg Neutrophils % 85.5 % (40.0-70.0) H 01/17/18 10:48 Seg Neutrophils # 6.5 K/mm3 (1.8-7.7) 01/17/18 10:48 PT 16.1 Sec. (12.2-14.9) H 01/18/18 23:46 INR 1.22 (0.87-1.13) H 01/18/18 23:46 Sodium 141 mmol/L (137-145) 01/17/18 10:48 Potassium 4.4 mmol/L (3.6-5.0) 01/17/18 10:48 Chloride 94.0 mmol/L (98-107) L 01/17/18 10:48 Carbon Dioxide 23 mmol/L (22-30) 01/17/18 10:48 Anion Gap 28 mmol/L 01/17/18 10:48 BUN 51 mg/dL (9-20) H 01/17/18 10:48 Creatinine 9.8 mg/dL (0.8-1.5) H 01/17/18 10:48 Estimated GFR 6 ml/min 01/17/18 10:48 BUN/Creatinine Ratio 5 % 01/17/18 10:48 Glucose 89 mg/dL (75-100) 01/17/18 10:48 Calcium 10.7 mg/dL (8.4-10.2) H 01/17/18 10:48 Troponin T 0.058 ng/mL (0.00-0.029) H 01/17/18 19:01 Triglycerides 171 mg/dL (2-149) H 01/17/18 10:48 Cholesterol 123 mg/dL (50-199) 01/17/18 10:48 LDL Cholesterol Direct 64 mg/dL (50-130) 01/17/18 10:48 HDL Cholesterol 42 mg/dL (40-59) 01/17/18 10:48 Cholesterol/HDL Ratio 2.92 % 01/17/18 10:48
[2018-01-19] MEDS ORDERED: NACL 0.9 (PRIMING MACHINE ONLY DIALYSIS) MC ONE (18:15)
[2018-01-19 19:36] LABS: Hematocrit 42.8 % (35.5-45.6); Hemoglobin 13.9 gm/dl (11.8-15.2)
[2018-01-19 19:48] LABS: INR 1.36 (0.87-1.13); Partial Thromboplastin Time 34.6 Sec. (24.2-36.6)
[2018-01-20 06:35] LABS: Basophils % (Auto) 0.3 % (0.0-1.8); Eosinophils # (Auto) 0.1 K/mm3 (0.0-0.4); Eosinophils % (Auto) 1.5 % (0.0-4.3); Hematocrit 41.8 % (35.5-45.6); Hemoglobin 13.4 gm/dl (11.8-15.2); Lymphocytes # (Auto) 1.4 K/mm3 (1.2-5.4); Mean Corpuscular HGB Conc 32 % (32-34); Mean Corpuscular Hemoglobin 30 pg (28-32); Mean Corpuscular Volume 94 fl (84-94); Monocytes # (Auto) 0.6 K/mm3 (0.0-0.8); Monocytes % (Auto) 8.6 % (0.0-7.3); Platelet Count 122 K/mm3 (140-440); Red Blood Count 4.47 M/mm3 (3.65-5.03); Red Cell Distribution Width 19.1 % (13.2-15.2)
[2018-01-20 06:59] LABS: Calcium 10.1 mg/dL (8.4-10.2)
[2018-01-20 07:06] LABS: INR 1.75 (0.87-1.13)
[2018-01-20] MEDS: PROAMATINE PO SCH ×2 (08:00→12:37)
[2018-01-20] MEDS ORDERED: HEPARIN 10,000 UNITS/10 ML ONE (08:30)
[2018-01-20] MEDS ORDERED: HEPARIN/NS 5000 UNIT/500ML(CATH LAB) 1,000 ML IR ONE (08:30)
[2018-01-20] MEDS ORDERED: XYLOCAINE 2% INFILTRATI ONE (08:31)
[2018-01-20] MEDS ORDERED: NACL 0.9% 250ML 250 ML ONE (08:32)
[2018-01-20] MEDS ORDERED: NITROGLYCERIN SYRINGE 3 ML ONE (08:32)
[2018-01-20] MEDS ORDERED: VERSED ONE (08:50)
[2018-01-20] MEDS: SUBLIMAZE ONE ×2 (08:58→08:59)
--- NOTE | 2018-01-20 10:40 | Progress Note ---
Assessment and Plan S/p C this AM which showed patent coronaries, normal EF. Currently stable cardiac status. Resume home cardiac regimen. Pt may discharge home following completion of post-cath order set. Recommend follow up in our office with Lulú Garcia NP, within 1-2 weeks of hospital discharge ([phone]). The patient has been seen in conjunction with Dr. Valdez who agrees with the assessment and plan of care. - Patient Problems (1) Chest pain Current Visit: Yes Status: Resolved Qualifiers: Chest pain type: unspecified Qualified Code(s): R07.9 - Chest pain, unspecified (2) Elevated troponin Current Visit: Yes Status: Acute (3) Cardiac pacemaker in situ Current Visit: Yes Status: Acute (4) History of cardiomyopathy Current Visit: Yes Status: Suspected (5) ESRD (end stage renal disease) Current Visit: Yes Status: Chronic Subjective Date of service: 01/20/18 Principal diagnosis: cp Interval history: seen s/p [facility]. no current complaints. Objective Last Vital Signs Temp 98.4 F 01/20/18 11:12 Pulse 51 L 01/20/18 11:12 Resp 18 01/20/18 11:12 BP 101/69 01/20/18 11:12 Pulse Ox 97 01/20/18 11:12 - Physical Examination General: No Apparent Distress HEENT: Positive: PERRL, Normocephaly, Mucus Membranes Moist Neck: Positive: neck supple, trachea midline Cardiac: Positive: Reg Rate and Rhythm, S1/S2 Lungs: Positive: clear to auscultation Neuro: Positive: Grossly Intact Abdomen: Positive: Soft. Negative: Tender Skin: Positive: Clear. Negative: Rash, Wound Musculoskeletal: No Fluid Collection, No Pain, Normal Range of Motion Extremities: Absent: edema - Labs and Meds Coagulation 01/19/18 01/20/18 Range/Units 18:42 06:00 PT 17.3 H 21.0 H (12.2-14.9) Sec. INR 1.36 H 1.75 H (0.87-1.13) APTT 34.6 (24.2-36.6) Sec. CBC 01/19/18 01/20/18 Range/Units 18:42 06:00 WBC 6.9 (4.5-11.0) K/mm3 RBC 4.47 (3.65-5.03) M/mm3 Hgb 13.9 13.4 (11.8-15.2) gm/dl Hct 42.8 41.8 (35.5-45.6) % Plt Count 147 122 L (140-440) K/mm3 Lymph # 1.4 (1.2-5.4) K/mm3 [place] # 0.6 (0.0-0.8) K/mm3 Eos # 0.1 (0.0-0.4) K/mm3 Baso # 0.0 (0.0-0.1) K/mm3 Comprehensive Metabolic Panel 01/20/18 Range/Units 06:00 Sodium 143 (137-145) mmol/L Potassium 4.1 (3.6-5.0) mmol/L Chloride 97.8 L (98-107) mmol/L Carbon Dioxide 28 (22-30) mmol/L BUN 16 (9-20) mg/dL Creatinine 5.9 H (0.8-1.5) mg/dL Glucose 86 (75-100) mg/dL Calcium 10.1 (8.4-10.2) mg/dL - Imaging and Cardiology EKG: report reviewed, image reviewed - Telemetry EKG Rhythm: Paced Pacemaker: ventricular pacing w/capt
--- NOTE | 2018-01-20 10:45 | Discharge Summary ---
Providers - Providers Date of Admission: 01/17/18 12:11 Attending physician: JUANITA LOBO MD 01/17/18 Consult to Cardiac Rehabilitation [CONS] Routine Reason For Exam: Phase I 01/17/18 12:52 Consult to Physician [CONS] Routine Comment: Consulting Provider: HOLLI ACOSTA Physician Instructions: Reason For Exam: esrd 01/18/18 09:48 Consult to Physician [CONS] Routine Comment: Consulting Provider: RASHAD EDWARDS Physician Instructions: Reason For Exam: chest pain, afib, Primary care physician: [employer] Hospitalization Condition: Serious Hospital course: 37 YO Male with ESRD on HD(T,R,Sa) presented because he experienced nausea, 2 episodes of vomiting, and feeling sick x 3 days, CP and reported that he missed HD. He received HD, he had Cardiac cath which was negative. He was also counseled on improved compliance with his meds and HD Diagnosis ESRD (end stage renal disease) Severe malnutrition Noncompliance: Chest pain, atypical- costochondritis Afib with hypercoaguable state, Disposition: DC-01 TO HOME OR SELFCARE Time spent for discharge: 33 minutes Core Measure Documentation - Palliative Care Palliative Care/ Comfort Measures: Not Applicable - Core Measures Any of the following diagnoses?: none Exam - Constitutional Vitals: Temp Pulse Resp BP Pulse Ox 98.7 F 54 L 16 103/64 95 01/20/18 05:03 01/20/18 05:03 01/20/18 05:03 01/20/18 05:03 01/20/18 05:03 General appearance: Present: no acute distress, well-nourished - EENT Eyes: Present: PERRL ENT: hearing intact, clear oral mucosa - Neck Neck: Present: supple, normal ROM - Respiratory Respiratory effort: normal Respiratory: bilateral: CTA - Cardiovascular Heart Sounds: Present: S1 & S2. Absent: rub, click - Extremities Extremities: pulses symmetrical, No edema Peripheral Pulses: within normal limits - Abdominal General gastrointestinal: Present: soft, non-tender, non-distended, normal bowel sounds Male genitourinary: Present: normal - Integumentary Integumentary: Present: clear, warm, dry - Musculoskeletal Musculoskeletal: gait normal, strength equal bilaterally - Psychiatric Psychiatric: appropriate mood/affect, intact judgment & insight - Neurologic Neurologic: CNII-XII intact, moves all extremities Plan Additional Instructions: please follow up at [facility] for Dialysis and INR( warfarin blood test) must be done during every dialysis. YOUR INR today is 1.75 Follow up with: PRIMARY CARE, [Primary Care Provider] - 3-5 Days Forms: Warfarin Discharge Instruction Prescriptions: Amiodarone [Cordarone 200 MG TAB] 200 mg PO BID #60 tablet Midodrine [Proamatine] 10 mg PO TID@0800,1200,1600 #90 tablet Warfarin [Coumadin] 5 mg PO QDAY #30 tablet
[2018-01-20] MEDS: PROTONIX PO SCH (12:36)
[2018-01-20] MEDS: BABY ASPIRIN PO SCH (12:36)
[2018-01-20] MEDS: CORDARONE PO SCH (12:37)
[2018-01-20] MEDS: SODIUM CHLORIDE FLUSH SYRINGE 10 ML IV SCH (12:38)
--- NOTE | 2018-01-20 13:31 | Progress Note ---
Assessment and Plan - Patient Problems (1) ESRD (end stage renal disease) Current Visit: Yes Status: Chronic Plan to address problem: cont HD on TTS schedule (2) Chest pain, atypical Current Visit: Yes Status: Acute Plan to address problem: S/p LHC which showed patent coronaries, normal EF. follow cardiology recs (3) Other hypotension Current Visit: Yes Status: Acute Plan to address problem: BP stable Subjective Date of service: 01/20/18 Principal diagnosis: cp Interval history: pt awake alert, in no acute respiratory distress, denies acute chest pain Objective - Vital Signs Vital signs: Vital Signs - 12hr 01/20/18 01/20/18 05:03 11:12 Temperature 98.7 F 98.4 F Pulse Rate 54 L 51 L Respiratory 16 18 Rate Blood Pressure 103/64 101/69 O2 Sat by Pulse 95 97 Oximetry - General Appearance General appearance: well-developed, well-nourished, appears stated age EENT: ATNC, PERRL, mucous membranes moist Neck: no JVD Respiratory: Present: Clear to Ascultation Cardiology: regular, S1S2 Gastrointestinal: normoactive bowel sounds Integumentary: no rash, other (no edema ) Neurologic: no focal deficit, alert and oriented x3, strength 5/5, CN 3-12 intact Psychiatric: mood/affect appropriate, cooperative - Lab 01/20/18 06:00 01/20/18 06:00 Most recent lab results Calcium 10.1 mg/dL (8.4-10.2) 01/20/18 06:00
--- NOTE | 2018-01-20 15:53 | Cardiac Catherization Report ---
INDICATION FOR PROCEDURE: The patient is a 37-year-old gentleman with history of end-stage renal disease, status post failed kidney transplant, getting history of heart failure and has epicardial ICD placed in the past, being followed at [facility], presented with chest pain, atypical and was noted to have abnormal nuclear imaging with inferolateral ischemia, hence scheduled for cardiac catheterization for definitive diagnosis and treatment. The patient is aware of the procedure, potential complications and alternatives of therapy available. DESCRIPTION OF PROCEDURE: The patient was brought to the catheterization laboratory in a fasting condition. Right groin area was thoroughly cleansed with Betadine solution. The patient is on warfarin. INR is 1.75. Local anesthesia was given in the right groin. Right femoral artery puncture was made using 5-[place] micropuncture needle. A 5-[place] sheath was introduced. A 5-[place] multipurpose catheter was used to obtain the angiograms of the left coronary artery in multiple views, right coronary arteries in multiple views followed by left ventriculogram done in TALLEY projection using hand injection. At the end of the procedure, catheter and sheath were removed. Good hemostasis was achieved. Following findings were noted. The patient tolerated the procedure well. It is to be noted the patient was evaluated for moderate sedation prior to the procedure. He was felt to be appropriate candidate, received IV Versed and fentanyl starting at 8:52 a.m. He was monitored continuously with pulse oximetry, hemodynamic monitoring and electrocardiographic monitoring up to 9:14 a.m. The patient was transferred to the outpatient area in stable condition. HEMODYNAMICS: 1. Opening aortic pressure 104/50, left ventricular pressure 103/8. Estimated ejection fraction 45-50%. 2. Left ventriculogram was performed using hand injection. Ejection fraction lower limits of normal to mildly depressed in the range of 45-50%. However, only limited amount of dye is injected and mitral regurgitation could not be evaluated. No gradient across the aortic valve. 3. Right coronary artery dominant vessel arises normally from right coronary cusp, angiographically smooth and normal. 4. Left coronary artery arises normally from left coronary cusp. Left main, LAD curving around the apex and its branches, circumflex artery and its branch are angiographically smooth and normal. FINAL IMPRESSION: 1. Left ventricular systolic function lower limits of normal to mildly depressed in the range of 45-50%. Normal end-diastolic pressure at this point. 2. Normal coronary anatomy angiographically. 3. Right femoral artery was used for access. Procedure was uncomplicated. JOB# [id number] GIGI/SANTOSH
[2018-01-20 18:00] VITALS: BP 106/70
== END 2018-01-20 18:16 | disposition home or self-care (01) | DRG 205 ==
LOC: ED 10:17 → 3A 12:11
PROVIDERS: ADMIT Internal Medicine; ATTEND Internal Medicine
PROC: 5A1D70Z Performance of Urinary Filtration, Intermittent, Less than 6 Hours Per Day (ICD-10-PCS; 2018-01-17)
PROC: 5A1D70Z Performance of Urinary Filtration, Intermittent, Less than 6 Hours Per Day (ICD-10-PCS; 2018-01-19)
PROC: 4A023N7 Measurement of Cardiac Sampling and Pressure, Left Heart, Percutaneous Approach (ICD-10-PCS; principal; 2018-01-20)
PROC: B2111ZZ Fluoroscopy of Multiple Coronary Arteries using Low Osmolar Contrast (ICD-10-PCS; 2018-01-20)
PROC: B2151ZZ Fluoroscopy of Left Heart using Low Osmolar Contrast (ICD-10-PCS; 2018-01-20)
DX: M94.0 Chondrocostal junction syndrome [Tietze] (principal); N18.6 End stage renal disease; E43 Unspecified severe protein-calorie malnutrition; I42.9 Cardiomyopathy, unspecified; D68.59 Other primary thrombophilia; Z68.1 Body mass index [BMI] 19.9 or less, adult; I13.2 Hypertensive heart and chronic kidney disease with heart failure and with stage 5 chronic kidney disease, or end stage renal disease; I50.9 Heart failure, unspecified; I48.91 Unspecified atrial fibrillation; Z91.19 Patient's noncompliance with other medical treatment and regimen; Z82.49 Family history of ischemic heart disease and other diseases of the circulatory system; Z99.2 Dependence on renal dialysis; Z95.810 Presence of automatic (implantable) cardiac defibrillator
CPT/HCPCS: 36415; 71046; 71275; 78452; 80048; 80061; 84484; 85014; 85018; 85025; 85049; 85610; 85730; 93005; 93010; 93017; 93306; 93458; 99291; A9502; J1644; J2250; J2785; J3010; J7030; J7050; Q0162; Q9967

== ENCOUNTER 2018-09-12 03:51 | Inpatient (IN) | payer OTHER ==
[2018-09-12 07:31] LABS: Hematocrit 30.1 % (35.5-45.6); Hemoglobin 9.4 gm/dl (11.8-15.2); Mean Corpuscular HGB Conc 31 % (32-34); Mean Corpuscular Volume 83 fl (84-94); Platelet Count 172 K/mm3 (140-440); Red Blood Count 3.64 M/mm3 (3.65-5.03); Red Cell Distribution Width 19.8 % (13.2-15.2)
[2018-09-12 07:59] LABS: Calcium 9.2 mg/dL (8.4-10.2)
--- NOTE | 2018-09-12 09:07 | Emergency Department Report ---
Chief Complaint: Back Pain/Injury Stated Complaint: BACK/NECK PAIN Time Seen by Provider: 09/12/18 09:06 - HPI History of Present Illness: CHINESE SPEAKING K 6 HD CO BACK AND LEG PAIN ILL/DEBILITY CHARGE NURSE AWARE NEED ACUTE BED AND HD MSE COMPLETED TO MAIN - Exam Vital Signs: Vital Signs 09/12/18 09/12/18 03:54 03:59 Temperature 97.8 F 97.8 F Pulse Rate 81 80 Respiratory 18 18 Rate Blood Pressure 121/86 121/86 O2 Sat by Pulse 98 98 Oximetry MSE screening note: Focused history and physical exam performed. Due to findings the following was ordered: ED Medical Decision Making - Lab Data Result diagrams: 09/12/18 07:11 09/12/18 07:11 ED Disposition for MSE Condition: Stable Referrals: ALLY MEADOWS MD [Primary Care Provider] - 3-5 Days
[2018-09-12] MEDS ORDERED: D50W (25GM) Syringe IV ONE (10:30)
[2018-09-12] MEDS ORDERED: HumuLIN R IV ONE (10:30)
--- NOTE | 2018-09-12 10:36 | Emergency Department Report ---
ED General Adult HPI - General Chief complaint: Back Pain/Injury Stated complaint: BACK/NECK PAIN Time Seen by Provider: 09/12/18 09:06 Source: patient Mode of arrival: Ambulatory Limitations: No Limitations, Language Barrier, Physical Limitation - History of Present Illness Initial comments: Patient is a 38-year-old male with history of end-stage renal disease on hemodialysis Tuesday and Tuesday. Patient presented to the ER stating that he missed his dialysis on Tuesday because he couldn't go to [place] because there is still many people there. Patient complaining of mild shortness of breath but denied any chest pain, headache, nausea or vomiting. He is complaining of chronic back pain. Patient found to have a potassium of 6. Patient immediately put on shelter monitor. EKG is unremarkable. Patient given calcium chloride. Patient given dextrose 50 and insulin 5. Albuterol. Patient does have a right arm fistula that is functioning. Severity scale (0 -10): 7 - Related Data Home Medications Medication Instructions Recorded Confirmed Last Taken Warfarin [Coumadin] 2.5 mg PO QDAY 11/04/17 11/04/17 Unknown Previous Rx's Medication Instructions Recorded Last Taken Type Amiodarone [Cordarone 200 MG TAB] 200 mg PO DAILY #30 tablet 07/07/17 Unknown Rx Midodrine HCl 10 mg PO TID #90 tablet 10/21/17 Unknown Rx Amiodarone [Cordarone 200 MG TAB] 200 mg PO BID #60 tablet 01/20/18 Unknown Rx Midodrine [Proamatine] 10 mg PO TID@0800,1200,1600 #90 01/20/18 Unknown Rx tablet Warfarin [Coumadin] 5 mg PO QDAY #30 tablet 01/20/18 Unknown Rx Allergies Allergy/AdvReac Type Severity Reaction Status Date / Time No Known Allergies Allergy Verified 01/23/18 08:27 ED Review of Systems ROS: Stated complaint: BACK/NECK PAIN Other details as noted in HPI Comment: All other systems reviewed and negative Constitutional: denies: chills, fever Respiratory: shortness of breath. denies: cough Cardiovascular: denies: chest pain, palpitations Gastrointestinal: denies: abdominal pain, nausea, vomiting Musculoskeletal: back pain ED Past Medical Hx - Past Medical History Previous Medical History?: Yes Hx Hypertension: Yes Hx GERD: Yes Hx Renal Disease: Yes Hx Arthritis: Yes Hx COPD: No Additional medical history: DIALYSIS, M and thurs - Surgical History Past Surgical History?: Yes Hx Pacemaker: Yes Hx Internal Defibrillator: Yes (pacemaker in abd, 04/2017) Additional Surgical History: fistula to right FA. VAS cath to right chest. left kidney transplanet - Social History Smoking Status: Never Smoker Substance Use Type: None - Medications Home Medications: Home Medications Medication Instructions Recorded Confirmed Last Taken Type Amiodarone [Cordarone 200 MG TAB] 200 mg PO DAILY #30 tablet 07/07/17 11/04/17 Unknown Rx Midodrine HCl 10 mg PO TID #90 tablet 10/21/17 11/04/17 Unknown Rx Warfarin [Coumadin] 2.5 mg PO QDAY 11/04/17 11/04/17 Unknown History Amiodarone [Cordarone 200 MG TAB] 200 mg PO BID #60 tablet 01/20/18 Unknown Rx Midodrine [Proamatine] 10 mg PO TID@0800,1200,1600 #90 01/20/18 Unknown Rx tablet Warfarin [Coumadin] 5 mg PO QDAY #30 tablet 01/20/18 Unknown Rx ED Physical Exam - General Limitations: No Limitations, Language Barrier, Physical Limitation General appearance: alert, in no apparent distress - Head Head exam: Present: atraumatic, normocephalic, normal inspection - Eye Eye exam: Present: normal appearance, PERRL - ENT ENT exam: Present: normal exam, normal orophraynx, mucous membranes moist - Neck Neck exam: Present: normal inspection, full ROM. Absent: tenderness, meningismus, lymphadenopathy, thyromegaly - Respiratory Respiratory exam: Present: normal lung sounds bilaterally - Cardiovascular Cardiovascular Exam: Present: regular rate, normal rhythm, normal heart sounds - GI/Abdominal GI/Abdominal exam: Present: soft, normal bowel sounds. Absent: distended, tenderness, guarding, rebound, rigid, organomegaly, mass, bruit, pulsatile mass, hernia - Extremities Exam Extremities exam: Present: normal inspection, full ROM, normal capillary refill - Back Exam Back exam: Present: normal inspection, full ROM - Neurological Exam Neurological exam: Present: alert, oriented X3, CN II-XII intact, normal gait, reflexes normal - Skin Skin exam: Present: warm, intact, normal color ED Course Vital Signs 09/12/18 09/12/18 09/12/18 03:54 03:59 09:30 Temperature 97.8 F 97.8 F 98.2 F Pulse Rate 81 80 79 Respiratory 18 18 20 Rate Blood Pressure 121/86 121/86 135/96 O2 Sat by Pulse 98 98 99 Oximetry ED Medical Decision Making - Lab Data Result diagrams: 09/12/18 07:11 09/12/18 07:11 - EKG Data EKG shows normal: sinus rhythm Rate: bradycardia - EKG Data Interpretation: no acute changes 09/12/18 10:36 Ventricular paced rhythm. - Medical Decision Making Patient is a 38-year-old male with history of end-stage renal disease on hemodialysis Tuesday and Tuesday. Patient presented to the ER stating that he missed his dialysis on Tuesday because he couldn't go to [place] because there is still many people there. Patient complaining of mild shortness of breath but denied any chest pain, headache, nausea or vomiting. He is complaining of chronic back pain. Patient found to have a potassium of 6. Patient immediately put on shelter monitor. EKG is unremarkable. Patient given calcium chloride. Patient given dextrose 50 and insulin 5. Albuterol. Ye gallegso does have a right arm fistula that is functioning. I discussed the patient with Norma Lin,practitioner was Dr. Nicholson. She stated that Dr. Nicholson agreed to admit the patient and order immediate and dialysis for him. I discussed the patient is Dr. Rachel, he agreed to admit the patient to medical service. Critical Care Time: Yes Critical care time in (mins) excluding proc time.: 30 Critical care attestation.: If time is entered above; I have spent that time in minutes in the direct care of this critically ill patient, excluding procedure time. ED Disposition Clinical Impression: ESRD (end stage renal disease), Acute hyperkalemia Disposition: OP ADMIT IP TO THIS HOSP Is pt being admited?: Yes Condition: Stable Referrals: ALLY MEADOWS MD [Primary Care Provider] - 3-5 Days
[2018-09-12] MEDS ORDERED: PROVENTIL IH ONE (10:37)
[2018-09-12] MEDS ORDERED: CALCIUM CHLORIDE 1,000 MG in NACL 0.9% 100 ML IV ONE (11:00)
[2018-09-12] MEDS ORDERED: TYLENOL PO PRN (11:38)
[2018-09-12] MEDS ORDERED: SODIUM CHLORIDE FLUSH SYRINGE 10 ML IV PRN (11:38)
[2018-09-12] MEDS ORDERED: ZOFRAN IV PRN (11:38)
--- NOTE | 2018-09-12 11:38 | History and Physical Report ---
History of Present Illness Chief complaint: I need dialysis History of present illness: 38 YO Male with ESRD S/P Renal Transplant on HD (T,R,Sa), Atrial Fib on Therapeutic Anticoagulation, GERD, OA, Noncompliance Presents to ED for evaluation. Pt states that he has experienced feeling sick over the past 2 days with persistent symptoms over the same time frame. Pt acknowledges generalized weakness, shortness of breath which began the day after missing dialysis. Pt acknowledges that he missed his routine scheduled dialysis on Tuesday because there were "too many people there". Pt transported to [facility] via private vehicle. Pt seen and evaluated in ED and found to have ESRD and Fluid overload secondary to noncompliance with dialysis. Pt denies fever, chills, CP, Palpitations, Syncope, BRBPR, unilateral leg swelling, calf pain, productive cough, prolonged travel/immobility, shortness of breath, or recent ill contacts. Pt admitted to medical floor with remote telemetry. Nephrology consulted in ED for urgent dial ysis. Prior admission on 01/17/18 reviewed. Past History Past Medical History: atrial fib, ESRD, GERD, hypertension Past Surgical History: Other (Pacemaker, Vas Cath, Renal Transplant) Social history: single. denies: smoking, alcohol abuse, prescription drug abuse Family history: hypertension Medications and Allergies Allergies Allergy/AdvReac Type Severity Reaction Status Date / Time No Known Allergies Allergy Verified 01/23/18 08:27 Home Medications Medication Instructions Recorded Confirmed Last Taken Type Amiodarone [Cordarone 200 MG TAB] 200 mg PO DAILY #30 tablet 07/07/17 11/04/17 Unknown Rx Midodrine HCl 10 mg PO TID #90 tablet 10/21/17 11/04/17 Unknown Rx Warfarin [Coumadin] 2.5 mg PO QDAY 11/04/17 11/04/17 Unknown History Amiodarone [Cordarone 200 MG TAB] 200 mg PO BID #60 tablet 01/20/18 Unknown Rx Midodrine [Proamatine] 10 mg PO TID@0800,1200,1600 #90 01/20/18 Unknown Rx tablet Warfarin [Coumadin] 5 mg PO QDAY #30 tablet 01/20/18 Unknown Rx Review of Systems Constitutional: no weight loss, no weight gain, no fever, no chills Ears, nose, mouth and throat: no ear pain, no ear discharge, no tinnitis, no decreased hearing, no nose pain, no nasal congestion Cardiovascular: no chest pain, no orthopnea, no palpitations, no rapid/irregular heart beat, no lightheadedness Respiratory: no cough, no cough with sputum, no excessive sputum, no hemoptysis Gastrointestinal: no nausea, no vomiting, no diarrhea, no constipation Genitourinary Male: no dysuria, no hematuria, no flank pain, no discharge, no urinary frequency, no urinary hesitancy Integumentary: no rash, no pruritis, no redness, no sores, no wounds Neurological: no paralysis, no weakness, no parathesias, no numbness, no tingling, no seizures Psychiatric: no memory loss, no change in sleep habits, no sleep disturbances, no insomnia, no hypersomnia Endocrine: no cold intolerance, no heat intolerance, no polyphagia, no excessive thirst, no polydipsia Hematologic/Lymphatic: no easy bruising, no easy bleeding Allergic/Immunologic: no urticaria, no allergic rhinitis, no wheezing Exam - Constitutional Vitals: Temp Pulse Resp BP Pulse Ox 98.2 F 79 20 135/96 99 09/12/18 09:30 09/12/18 09:30 09/12/18 09:30 09/12/18 09:30 09/12/18 09:30 General appearance: Present: mild distress - EENT Eyes: Present: PERRL ENT: hearing intact, clear oral mucosa - Neck Neck: Present: supple, normal ROM - Respiratory Respiratory effort: normal Respiratory: bilateral: rales - Cardiovascular Heart Sounds: Present: S1 & S2. Absent: rub, click - Extremities Extremities: pulses symmetrical, No edema Peripheral Pulses: within normal limits - Abdominal General gastrointestinal: Present: soft, non-tender, non-distended, normal bowel sounds Male genitourinary: Present: normal - Integumentary Integumentary: Present: clear, warm, dry - Musculoskeletal Musculoskeletal: gait normal, strength equal bilaterally - Psychiatric Psychiatric: appropriate mood/affect, intact judgment & insight - Neurologic Neurologic: CNII-XII intact, moves all extremities Results - Labs CBC & Chem 7: 09/12/18 07:11 09/12/18 07:11 Labs: Abnormal lab results 09/12/18 09/12/18 Range/Units 07:11 07:11 RBC 3.64 L (3.65-5.03) M/mm3 Hgb 9.4 L (11.8-15.2) gm/dl Hct 30.1 L (35.5-45.6) % MCV 83 L (84-94) fl MCH 26 L (28-32) pg MCHC 31 L (32-34) % RDW 19.8 H (13.2-15.2) % Potassium 6.0 H (3.6-5.0) mmol/L Chloride 93.7 L (98-107) mmol/L BUN 79 H (9-20) mg/dL Creatinine 14.6 H (0.8-1.5) mg/dL Magnesium 3.70 H (1.7-2.3) mg/dL Assessment and Plan - Patient Problems (1) End stage renal disease Current Visit: Yes Status: Acute Plan to address problem: Nephrology consulted in ED, urgent dialysis, monitor uop q shift, daily weight, CBC, CMP, strict I/O, avoid nephrotoxic agents. (2) Hyperkalemia Current Visit: Yes Status: Acute Plan to address problem: Calcium gluconate, urgent dialysis, No EKG changes, repeat bmp (3) Atrial fibrillation Current Visit: No Status: Acute Qualifiers: Atrial fibrillation type: paroxysmal Qualified Code(s): I48.0 - Paroxysmal atrial fibrillation Plan to address problem: Rate control with Amiodarone, continue therapeutic anticoagulation, remote telemetry. (4) Fluid overload Current Visit: No Status: Acute Qualifiers: Hypervolemia type: other Qualified Code(s): E87.79 - Other fluid overload Plan to address problem: monitor uop q shift, strict I/O, monitor fluid balance, urgent dialysis (5) Severe malnutrition Current Visit: No Status: Acute Plan to address problem: Encourage increased protein intake, renal diet, (6) DVT prophylaxis Current Visit: No Status: Acute Plan to address problem: SCD to BLE while in bed, continue therapeutic anticoagulation
[2018-09-12] MEDS: PROAMATINE PO SCH ×2 (12:00→22:15)
[2018-09-12 12:30] LABS: INR 3.01 (0.87-1.13)
[2018-09-12] MEDS ORDERED: NACL 0.9% 100 ML IV PRN (13:23)
[2018-09-12] MEDS ORDERED: MIDODRINE HCL 10 MG PO SCH (14:00)
[2018-09-12] MEDS ORDERED: COUMADIN NO DOSE TODAY PO ONE (17:00)
[2018-09-12] MEDS ORDERED: CORDARONE PO SCH (22:00)
[2018-09-12] MEDS: PEPCID PO SCH (22:15)
[2018-09-12] MEDS: SODIUM CHLORIDE FLUSH SYRINGE 10 ML IV SCH (22:16)
[2018-09-13 05:50] LABS: INR 2.19 (0.87-1.13)
[2018-09-13] MEDS ORDERED: CORDARONE PO SCH (10:00)
[2018-09-13] MEDS ORDERED: COUMADIN PO SCH ×6 (10:00→20:00)
[2018-09-13] MEDS: PEPCID PO SCH (10:03)
[2018-09-13] MEDS: SODIUM CHLORIDE FLUSH SYRINGE 10 ML IV SCH (10:03)
[2018-09-13] MEDS: PROAMATINE PO SCH ×3 (10:03→18:13)
--- NOTE | 2018-09-13 17:13 | Consultation ---
History of Present Illness - Reason for Consult Consult date: 09/13/18 end stage renal disease, hyperkalemia - History of Present Illness Mr. Ribeiro is a a 38yo with ESRD on HD TTS who presented and atrial fibrillation who presented to the with generalized weakness and shortness of breath. In the ED patient's K 6.0. Nephrology consultation was requested by the primary team. Past History Past Medical History: atrial fib, ESRD, GERD, hypertension Past Surgical History: Other (Pacemaker, Vas Cath, Renal Transplant) Social history: single. denies: smoking, alcohol abuse, prescription drug abuse Family history: hypertension Medications and Allergies Allergies Allergy/AdvReac Type Severity Reaction Status Date / Time No Known Allergies Allergy Verified 01/23/18 08:27 Home Medications Medication Instructions Recorded Confirmed Last Taken Type Amiodarone [Cordarone 200 MG TAB] 200 mg PO DAILY #30 tablet 07/07/17 09/12/18 Unknown Rx Cholecalciferol Vit D3 [Vitamin D3 1,000 unit PO QDAY 09/12/18 09/12/18 Unknown History 1,000 UNIT TAB] Cinacalcet [Sensipar] 30 mg PO QDAY 09/12/18 09/12/18 Unknown History Midodrine HCl 10 mg PO TID 09/12/18 09/12/18 Unknown History Sevelamer Carbonate [Renvela] 2,400 mg PO TIDWM 09/12/18 09/12/18 Unknown History Warfarin [Coumadin] 1.25 mg PO 5XW 09/12/18 09/12/18 Unknown History Warfarin [Coumadin] 2.5 mg PO 2XW 09/12/18 09/12/18 Unknown History Active Meds: Active Medications Acetaminophen (Tylenol) 650 mg PO Q4H PRN PRN Reason: Pain MILD(1-3)/Fever >100.5/MAKI Last Admin: 09/12/18 23:50 Dose: 650 mg Documented by: Amiodarone HCl (Cordarone) 200 mg PO DAILY [facility] Last Admin: 09/13/18 10:03 Dose: 200 mg Documented by: Famotidine (Pepcid) 10 mg PO DAILY [facility] Last Admin: 09/13/18 10:03 Dose: 10 mg Documented by: Sodium Chloride (Nacl 0.9%) 100 mls @ 999 mls/hr IV TYLOR PRN PRN Reason: Hypotension Midodrine (Proamatine) 10 mg PO TID@0800,1200,1600 [facility] Last Admin: 09/13/18 14:33 Dose: 10 mg Documented by: Ondansetron HCl (Zofran) 4 mg IV Q8H PRN PRN Reason: Nausea And Vomiting Sodium Chloride (Sodium Chloride Flush Syringe 10 Ml) 10 ml IV BID [facility] Last Admin: 09/13/18 10:03 Dose: 10 ml Documented by: Sodium Chloride (Sodium Chloride Flush Syringe 10 Ml) 10 ml IV PRN PRN PRN Reason: LINE FLUSH Warfarin Sodium (Coumadin) 2.5 mg PO SuWe@1700 [facility] Warfarin Sodium (Coumadin) 1.25 mg PO MoTuThFrSa@1700 [facility] Review of Systems All systems: negative Exam - Vital Signs Vital signs: Vital Signs Temp Pulse Resp BP Pulse Ox 97.8 F 81 18 121/86 98 09/12/18 03:54 09/12/18 03:54 09/12/18 03:54 09/12/18 03:54 09/12/18 03:54 - General Appearance General appearance: well-developed, well-nourished EENT: ATNC Respiratory: Clear to Ascultation Heart: regular, S1S2 Gastrointestinal: Present: normal. Absent: tenderness, distended Integumentary: no rash, warm and dry Musculoskeletal: Present: other (no edema) Psychiatric: cooperative Results - Lab Results 09/12/18 07:11 09/12/18 07:11 Most recent lab results Calcium 9.2 mg/dL (8.4-10.2) 09/12/18 07:11 Magnesium 3.70 mg/dL (1.7-2.3) H 09/12/18 07:11 Assessment and Plan Impression: * End stage renal disease * Hyperkalemia * Atrial fibrillation * Anemia secondary to ESRD * Secondary hyperPTH Plan: * Patient is s/p dialysis yesterday. No emergent need for HD today * Will plan for HD in AM * Rate control per primary team * Epogen TIW prn * Renal diet * Stable for d/c from a renal standpoint.
[2018-09-13 18:28] VITALS: BP 104/74
--- NOTE | 2018-09-13 19:28 | Discharge Summary ---
Providers - Providers Date of Admission: 09/12/18 11:38 Date of discharge: 09/13/18 Attending physician: FACUNDO AHUJA 09/12/18 10:47 Consult to Physician [CONS] Stat Comment: Dr. Kovacs spoke with CUSTOMER RELATIONS CONSULTANT Norma @ 1045 Consulting Provider: JENA CHÁVEZ Physician Instructions: Reason For Exam: ESRD ON HD WITH K OF 6 Primary care physician: [facility], Hospitalization Reason for admission: Volume overload Condition: Stable Hospital course: (1)Volume overload Better (2) End stage renal disease Current Visit: Yes Status: Acute Plan to address problem: Had HD today SOB better (3) Hyperkalemia Current Visit: Yes Status: Acute Plan to address problem: Improved (4) Atrial fibrillation Current Visit: No Status: Acute Qualifiers: Atrial fibrillation type: paroxysmal Qualified Code(s): I48.0 - Paroxysmal atrial fibrillation Plan to address problem: Rate control with Amiodarone, continue therapeutic anticoagulation, remote telemetry. (5) Severe malnutrition Current Visit: No Status: Acute Plan to address problem: Encourage increased protein intake, renal diet, Disposition: DC-01 TO HOME OR SELFCARE Core Measure Documentation - Palliative Care Palliative Care/ Comfort Measures: Not Applicable - Core Measures Any of the following diagnoses?: none Exam - Constitutional Vitals: Temp Pulse Resp BP Pulse Ox 98.9 F 62 18 104/74 97 09/13/18 18:26 09/13/18 18:26 09/13/18 18:26 09/13/18 18:26 09/13/18 18:26 General appearance: Present: no acute distress, well-nourished - EENT Eyes: Present: PERRL ENT: hearing intact, clear oral mucosa - Neck Neck: Present: supple, normal ROM - Respiratory Respiratory effort: normal Respiratory: bilateral: CTA - Cardiovascular Heart rate: 78 Rhythm: regular Heart Sounds: Present: S1 & S2. Absent: rub, click - Extremities Extremities: no ischemia, pulses intact, pulses symmetrical, No edema Peripheral Pulses: within normal limits - Abdominal General gastrointestinal: Present: soft, non-tender, non-distended, normal bowel sounds Male genitourinary: Present: normal - Rectal Rectal Exam: deferred - Integumentary Integumentary: Present: clear, warm, dry - Musculoskeletal Musculoskeletal: gait normal, strength equal bilaterally - Psychiatric Psychiatric: appropriate mood/affect, intact judgment & insight - Neurologic Neurologic: CNII-XII intact, moves all extremities - Allied Health Allied health notes reviewed: nursing, case management Plan Activity: no restrictions Diet: renal Follow up with: ALLY MEADOWS MD [Primary Care Provider] - 3-5 Days Forms: Warfarin Discharge Instruction
[2018-09-13] MEDS ORDERED: PROAMATINE PO SCH (20:00)
[2018-09-13] MEDS ORDERED: MIDODRINE HCL 10 MG PO SCH (20:00)
[2018-09-14] MEDS ORDERED: RENVELA PO SCH (08:00)
[2018-09-14] MEDS ORDERED: VITAMIN D3 PO SCH (10:00)
[2018-09-14] MEDS ORDERED: SENSIPAR PO SCH (10:00)
[2018-09-14] MEDS ORDERED: COUMADIN PO SCH (17:00)
== END 2018-09-13 21:13 | disposition home or self-care (01) | DRG 640 ==
LOC: ED 03:51 → 3A 11:38
PROVIDERS: ADMIT Internal Medicine; ATTEND Internal Medicine
PROC: 5A1D70Z Performance of Urinary Filtration, Intermittent, Less than 6 Hours Per Day (ICD-10-PCS; principal; 2018-09-12)
DX: E87.5 Hyperkalemia (principal); N18.6 End stage renal disease; E43 Unspecified severe protein-calorie malnutrition; Z94.0 Kidney transplant status; I12.0 Hypertensive chronic kidney disease with stage 5 chronic kidney disease or end stage renal disease; Z68.41 Body mass index [BMI] 40.0-44.9, adult; N25.81 Secondary hyperparathyroidism of renal origin; K21.9 Gastro-esophageal reflux disease without esophagitis; E11.22 Type 2 diabetes mellitus with diabetic chronic kidney disease; Z79.01 Long term (current) use of anticoagulants; I48.0 Paroxysmal atrial fibrillation; D63.1 Anemia in chronic kidney disease; Z99.2 Dependence on renal dialysis; Z95.0 Presence of cardiac pacemaker
CPT/HCPCS: 36415; 80048; 82550; 83735; 84132; 85027; 85610; 93005; 93010; 94640; 94760; 96374; G0378; J1815